=== PATIENT | male | born 1985 | race Caucasian/White ===

== ENCOUNTER 2022-10-09 10:07 | Outpatient (CLI) | payer BC, SELFPAY ==
[2022-10-09 17:44] LABS: Cholesterol* 211 mg/dL (90-199); HDL Cholesterol* 47 mg/dL (>=40); LDL Cholesterol Calculated 144 mg/dL (<100); Triglycerides* 98 mg/dL (40-149)
== END 2022-10-09 10:08 | disposition home or self-care (01) ==
LOC: LONREF 10:07
PROVIDERS: PCP Family Medicine; Visit Provider Family Medicine
DX: Z13.6 Encounter for screening for cardiovascular disorders (principal)
CPT/HCPCS: 80061

== ENCOUNTER 2023-11-04 18:19 | Emergency (ER) | payer BC, SELFPAY ==
[2023-11-04 18:27] VITALS: BP 134/76; PULSE 85; RESP 18; TEMP 36.2; O2SAT 96; BMI 34.5
--- NOTE | 2023-11-04 18:52 | ED.BACK ---
HPI - Back Pain/Injury General Time Seen by Provider: 18:37 Date Seen: 11/04/23 Chief Complaint: Back Injury/Pain Stated Complaint: sever lower back pain Time Seen by Provider: 11/04/23 18:37 Source: patient and family Mode of arrival: ambulatory Limitations: no limitations History of Present Illness HPI Narrative: This 38-year-old male is coming in with lumbar low back pain that radiates down the back of his leg but stops above his knee, goes on the outside of his like as well. The outside of his leg has a numb tingly feeling. No bowel or bladder incontinence issues. He has been trying [id number] medicines. He has had pain for while, has had history of pain like this per report but the last few days been quite bad. 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 There is no fevers or chills. He states the pain only has ever gone down the left leg. It does not sound like he is been seen for this before. He has been seen in the [facility] before by Dr. Hudson. elicited complaint: back pain Related Data Home Medications Medication Instructions Recorded Confirmed No Known Home Medications 10/09/22 10/09/22 Allergies Allergy/AdvReac Type Severity Reaction Status Date / Time No Known Drug Allergies Allergy Verified 10/09/22 09:28 Review of Systems Narrative: As per HPI. [facility] Social History Smoking Status: Former smoker Non-prescribed substance use: denies use Little interest or pleasure in doing things: several days Feeling down, depressed, or hopeless: several days Exam Const: Vital Signs, click to edit/add: Vital Signs - 24 hr 11/04/23 18:27 Temperature 97.2 F L Pulse Rate [Right Pulse Oximeter] 85 Respiratory Rate 18 Blood Pressure [Ri ght Upper Arm] 134/76 Pulse Oximetry 96 Oxygen Delivery Me thod Room Air Patient is alert, interactive, sitting up on the edge of the bed. Does look like he moves stiffly when attempting to rotate about his torso. He has no midline tenderness over spine, no skin changes on inspection. Does have some mild left SI joint pain and says there is certainly pain of his left sciatic notch. He has a positive straight leg raise on the left. His gait is normal he is able to toe and heel walk. Strength is 5/5 and symmetric throughout his lower extremities. He has normal light touch sensation, touch both of his thighs through his pants, he states he can feel them on both sides but does have an underlying feeling on the outside of the left leg that there is a pins and needle sensation. No vascular concerns. Documenting provider has reviewed patient's vital signs: yes Course Course ED Course: Reviewed conservative management of radiculopathic back pain without warning findings. He would like injection of Toradol here. Do not feel imaging is necessary at this time but did review that if he has ongoing issues, not responding to conservative measures, then lumbar MRI may need to be ordered. We reviewed that we do not do emergent MRI's out of the ED for this, cannot do one regardless at this time as there is no MRI coverage. We reviewed physical therapy, he is willing, will provide the referral. They question about getting an injection in the back to help with this. I did review with them that there are people who are unresponsive to conservative measurements and do need injections which are usually done by radiology was CT guidance. This is not something that is ordered emergently, comes after failed conservative management and ongoing symptoms. Vital Signs Vital signs: Initial Vital Signs Temperature 97.2 F L 11/04/23 18:27 Temperature Source Temporal Artery Scan 11/04/23 18:27 Pulse Rate 85 11/04/23 18:27 Respiratory Rate 18 11/04/23 18:27 Blood Pressure 134/76 11/04/23 18:27 Blood Pressure Mean 95 11/04/23 18:27 Blood Pressure Position Sitting 11/04/23 18:27 Pulse Oximetry 96 11/04/23 18:27 Oxygen Delivery Method Room Air 11/04/23 18:27 Vital Signs Temperature 97.2 F L 11/04/23 18:27 Pulse Rate 85 11/04/23 18:27 Respiratory Rate 18 11/04/23 18:27 Blood Pressure 134/76 11/04/23 18:27 Pulse Oximetry 96 11/04/23 18:27 Oxygen Delivery Method Room Air 11/04/23 18:27 Temperature 97.2 F L 11/04/23 18:27 Pulse Rate 85 11/04/23 18:27 Respiratory Rate 18 11/04/23 18:27 Blood Pressure 134/76 11/04/23 18:27 Pulse Oximetry 96 11/04/23 18:27 Oxygen Delivery Method Room Air 11/04/23 18:27 Discharge Plan Discharge Clinical Impression: Acute left lumbar radiculopathy Patient Disposition: Home, Self-Care Condition: Stable Instructions: Lumbar Radiculopathy (ED) Additional Instructions: Start prednisone, 20 mg orally twice a day for 5 days, take with food to protect your stomach. Have written for Flexeril or cyclobenzaprine, 10 mg at bedtime as needed, if not working can use up to 3 times a day spaced 8 hours apart. Fifteen tablets provided. Do not use alcohol, no operation of machinery or driving while on Flexeril as it can be sedating. Can try ice or heat to your low back area, use whichever feels better. Therapy referral form for physical therapy has been provided, please contact the facility to get that set up. Recommend that you get scheduled for follow-up in clinic, Dr. Hudson is now at the [facility]. He can further refer you for MRI imaging if it is clinically indicated. Review handout, if there are any warning signs as reviewed in the handout, please seek re-evaluation. Can use Tylenol 1000 mg 3 times a day baseline for pain management, supplement with ibuprofen per bottle directions for additional needed pain management. Activity Level: Activity as Tolerated Prescriptions: No Action No Known Home Medications Follow Up/Referrals: Brody Hudson MD [Primary Care Provider] - Stand Alone Forms: [employer] Info Instructions
[2023-11-04 19:03] VITALS: TEMP 36.2
[2023-11-04] MEDS: KETOROLAC 30 MG/ML inj IM (19:03)
[2023-11-04 19:22] VITALS: BP 124/74; PULSE 79; RESP 18; TEMP 36.6; O2SAT 96
[2023-11-04 19:24] VITALS: BP 124/74; PULSE 79; RESP 18; TEMP 36.6
== END 2023-11-04 19:24 | disposition home or self-care (01) ==
LOC: ED 19:15
PROVIDERS: Emergency Provider Family Medicine; PCP Family Medicine
DX: M54.16 Radiculopathy, lumbar region (principal)
CPT/HCPCS: 96372; 99283; J1885

== ENCOUNTER 2023-11-21 09:47 | Outpatient (RCR) | payer BC, SELFPAY | END 2024-01-10 13:16 | disposition home or self-care (01) | PROVIDERS: PCP Family Medicine; Visit Provider Family Medicine | DX: M54.16 Radiculopathy, lumbar region (principal); M54.50 Low back pain, unspecified; Z51.89 Encounter for other specified aftercare | CPT/HCPCS: 97140; 97161 ==

== ENCOUNTER 2025-08-13 12:28 | Emergency (ER) | payer BC, SELFPAY ==
[2025-08-13 12:40] VITALS: BP 133/80; PULSE 79; RESP 18; TEMP 36.9; O2SAT 98
--- NOTE | 2025-08-13 13:15 | ED_ITS ---
HPI - General Adult General Chief complaint: Laceration/Wound Stated complaint: R thumb laceration Time Seen by Provider: 08/13/25 12:34 History of Present Illness HPI narrative: Patient is a 40-year-old gentleman who comes in today after slicing the floor tip of his right thumb with a ice auger last night. He has been having moderate discomfort since last night. The wound is superficial and does not involve bone. He has been holding direct pressure but is continues to bleed. Pain is moderate he is unable to control pain with Tylenol and Motrin. 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 Current smoker What is your current living situation?: I presently have a place to live Problems where you live: no known problems In the past 12 months, utilities in danger of being shut off: no In past 12 months, lack of transportation kept you from medical appts, meetings, work, or getting things needed for daily living: no In the past 12 mos, have been you worried that your food would run out before you had money to buy more?: declined to answer In the past 12 mos, the food you bought just didn't last and you didn't have money to buy more?: declined to answer Smoking Status: Current some day smoker Non-prescribed substance use: denies use How often does anyone, including family, friends and others, physically hurt you : decline to answer How often does anyone, including family, friends and others, insult or talk down to you: decline to answer How often does anyone, including family, friends and others, threaten you with harm: decline to answer How often does anyone, including family, friends and others, scream or curse at you: decline to answer Exam Narrative: Exam Narrative: EXAM GENERAL: Patient appears comfortable and well. EYES: No scleral icterus. LYMPH: No supraclavicular or cervical lymphadenopathy. SKIN: Avulsion of the finger tip on the right thumb. No bony involvement. EXT: No dependent lower extremity pedal edema. HEART: Regular rate and rhythm with no murmurs, rubs, or gallops. LUNGS: Clear to auscultation bilaterally with no crackles or wheezes. ABD: Soft, non tender, non distended. PSYCH: Good eye contact, speech is not pressured. Const: Vital Signs, click to edit/add: Vital Signs - 24 hr 08/13/25 12:40 Temperature 98.4 F Pulse Rate [Right Pulse Oximeter] 79 Respiratory Rate 18 Blood Pressure [Ri ght Upper Arm] 133/80 Pulse Oximetry 98 Oxygen Delivery Me thod Room Air Course Course ED Course: Wound was aggressively irrigated and cleaned. We did treat with surgical gauze and distress healing wound. He will leave and place for approximately 36 hours ago before changing the bandage. Patient unable control pain with Tylenol Motrin. Limited supply of Tylenol with codeine given in the short term. Did recommend follow-up with primary care next week. Vital Signs Vital signs: Initial Vital Signs Temperature 98.4 F 08/13/25 12:40 Temperature Source Temporal Artery Scan 08/13/25 12:40 Pulse Rate 79 08/13/25 12:40 Pulse Rhythm Regular 08/13/25 12:40 Pulse Strength 3+ Normal 08/13/25 12:40 Respiratory Rate 18 08/13/25 12:40 Blood Pressure 133/80 08/13/25 12:40 Blood Pressure Mean 97 08/13/25 12:40 Blood Pressure Position Sitting 08/13/25 12:40 Pulse Oximetry 98 08/13/25 12:40 Oxygen Delivery Method Room Air 08/13/25 12:40 Vital Signs Temperature 98.4 F 08/13/25 12:40 Pulse Rate 79 08/13/25 12:40 Respiratory Rate 18 08/13/25 12:40 Blood Pressure 133/80 08/13/25 12:40 Pulse Oximetry 98 08/13/25 12:40 Oxygen Delivery Method Room Air 08/13/25 12:40 Temperature 98.4 F 08/13/25 12:40 Pulse Rate 79 08/13/25 12:40 Respiratory Rate 18 08/13/25 12:40 Blood Pressure 133/80 08/13/25 12:40 Pulse Oximetry 98 08/13/25 12:40 Oxygen Delivery Method Room Air 08/13/25 12:40 Medical Decision Making MDM Narrative Medical decision making narrative: As above. Discharge Plan Discharge Clinical Impression: Laceration Patient Disposition: Home, Self-Care Condition: Stable Instructions: Laceration (ED) Additional Instructions: Leave dressing in place until mid day on Sunday. Pain control as discussed. Follow-up with your doctor next week Activity Level: No Restrictions Discharge Diet: Regular Prescriptions: No Action No Known Home Medications Follow Up/Referrals: Brody Hudson MD [Primary Care Provider, Family Practice] Stand Alone Forms: [employer] Info Instructions
== END 2025-08-13 13:31 | disposition home or self-care (01) ==
PROVIDERS: Emergency Provider Internal Medicine; PCP Family Medicine
DX: S61.011A Laceration without foreign body of right thumb without damage to nail, initial encounter (principal); W29.8XXA Contact with other powered hand tools and household machinery, initial encounter
CPT/HCPCS: 99282; 99283